=== PATIENT | female | born 1970 | race African-American/Black ===

== ENCOUNTER 2017-08-30 11:33 | Emergency (ER) | payer SELFPAY ==
[~2017-08-30] VITALS: Ht 160 cm; Wt 50.0 kg
[2017-08-30] MEDS ORDERED: ALPR0.25 PO (11:37)
[2017-08-30 17:52] VITALS: BP 109/55
== END 2017-08-30 17:54 | disposition home or self-care (01) ==
LOC: ER 11:33
DX: S20.219A Contusion of unspecified front wall of thorax, initial encounter (principal); Y92.410 Unspecified street and highway as the place of occurrence of the external cause; F41.9 Anxiety disorder, unspecified; J45.909 Unspecified asthma, uncomplicated; Z88.0 Allergy status to penicillin; Z88.1 Allergy status to other antibiotic agents
CPT/HCPCS: 71111; 99284